=== PATIENT | male | born 1950 | race Caucasian/White ===

== ENCOUNTER → 2018-05-01 | Outpatient (CLI) | payer MEDICARE, OTHER ==
[~2018-05-01] MED LIST: DOCU100 PO; GLIP5 PO; HYDACE5 PO; METF500 PO; SENN187 PO; SIMV80 PO
[2018-05-01 16:32] LABS: BASOPHILS ABSOLUTE AUTO 0.04 K/mm3 (0.00-0.23); BASOPHILS PERCENT AUTO 0 % (0-2); EOSINOPHILS ABSOLUTE AUTO 0.29 K/mm3 (0.00-0.68); EOSINOPHILS PERCENT AUTO 3 % (0-6); Hematocrit 39.6 % (37.0-53.0); Hemoglobin 14.7 g/dL (13.5-17.5); IMMATURE GRAN ABSOLUTE AUTO 0.03 K/mm3 (0.00-0.10); IMMATURE GRAN PERCENT AUTO 0 % (0-1); LYMPHOCYTES PERCENT AUTO 19 % (21-46); MONOCYTES ABSOLUTE AUTO 0.55 K/mm3 (0.16-1.47); MONOCYTES PERCENT AUTO 6 % (4-13); Mean Corpuscular HGB 33.7 pg (26.0-34.0); Mean Corpuscular HGB Conc 37.1 g/dL (31.5-36.5); Mean Corpuscular Volume 91 fL (80-100); Mean Platelet Volume 9.7 fL (9.1-12.4); NEUTROPHILS PERCENT AUTO 72 % (41-73); Platelet Count 223 K/mm3 (150-400); RDW Coefficient Variation 12.5 % (11.7-14.2); Red Blood Cell Count 4.36 M/mm3 (4.30-5.90); White Blood Cell Count 9.51 K/mm3 (4.00-11.30)
[2018-05-01 16:54] LABS: Alanine Aminotransfer (ALT/SGP 26 U/L (12-78); Albumin, Blood 3.8 g/dL (3.4-5.0); Albumin/Globulin Ratio 1.2 (0.8-1.8); Alk Phos 71 U/L (40-126); Anion Gap 9 mmol/L (6-16); Aspartate Aminotrans (AST/SGOT 18 U/L (12-37); Bilirubin, Total 0.3 mg/dL (0.1-1.0); Blood Urea Nitrogen 18 mg/dL (8-24); Bun/Creatinine Ratio 19.4 (12.0-20.0); CO2, Blood 25 mmol/L (21-32); Calcium, Blood 8.7 mg/dL (8.5-10.1); Chloride, Blood 104 mmol/L (98-108); Creatinine, Blood 0.93 mg/dL (0.60-1.20); Globulin, Blood 3.3 g/dL (2.2-4.0); Glomerular Filtration Rate >60 (60-); Glucose, Blood 161 mg/dL (70-99); Potassium, Blood 4.3 mmol/L (3.5-5.5); Sodium, Blood 138 mmol/L (136-145); Thyroid Stimulating Hormone 3.296 uIU/mL (0.360-4.800); Total Protein, Blood 7.1 g/dL (6.4-8.2)
== END | disposition home or self-care (01) ==
LOC: LAB EV 16:29 → LAB SHORT 16:29
PROVIDERS: Physician Assistant
DX: R53.83 Other fatigue (principal)
CPT/HCPCS: 80053; 84443; 85025

== ENCOUNTER 2018-08-08 06:04 | Day surgery (SDC) | payer MEDICARE, OTHER ==
[~2018-08-08] VITALS: Ht 185.4 cm; Wt 98.5 kg
[~2018-08-08 06:04] MED LIST changes: +ATOR40TA PO; +Aspir 8181 MG PO; +B Complex #11 EACH PO; +CARV6.25 PO; +Fluoxetine HCl20 M1 PO; +GABA300 PO; +Galzin50 MG PO; +INSULANPEN SC; +Metformin HCl850 MG PO; +Naproxen250 MG PO; +OMEG1CAP30 PO; +OXYC5 PO; +PRAZ2 PO
--- NOTE | 2018-08-08 06:40 | NUR ---
08/08/18 0640 Mecca Mcconnell V PT RESTINGIN BED, SIDE RAILS IN PLACE, CALL LIGHT WITHIN REACH, VSS. PT DENIES PAIN AND DISCOMFORT AT THIS TIME. PT TEACHING COMPLETED. PT DENIES QUESTIONS AT THIS TIME.
--- NOTE | 2018-08-08 07:57 | NUR ---
08/08/18 0757 Regine Beltran PT TRANSFERRED TO THE RECLINER WITH STAND BY ASSIST FROM RN. PT DENIES PAIN AND NAUSEA. VSS. RN PROVIDED WARM BLANKETS AND A PILLOW TO REST THE OP ARM ON. PT IS RESTING WITH EYES CLOSED. PT'S NOTIFIED OF STATUS. PT IS TOLERATING PO FLUIDS AND SNACKS WELL.
== END 2018-08-08 08:22 | disposition home or self-care (01) ==
LOC: ORSCSDS 06:04
PROVIDERS: Orthopaedic Surgery
PROC: 01N50ZZ Release Median Nerve, Open Approach (ICD-10-PCS; principal; 2018-08-08 07:30)
DX: G56.01 Carpal tunnel syndrome, right upper limb (principal); E11.9 Type 2 diabetes mellitus without complications; E78.5 Hyperlipidemia, unspecified; F43.10 Post-traumatic stress disorder, unspecified; G47.33 Obstructive sleep apnea (adult) (pediatric); I10 Essential (primary) hypertension; I25.10 Atherosclerotic heart disease of native coronary artery without angina pectoris; Z79.82 Long term (current) use of aspirin; Z79.4 Long term (current) use of insulin; Z79.899 Other long term (current) drug therapy; Z87.891 Personal history of nicotine dependence
CPT/HCPCS: 82947; J0690; J2250; J3010; J7120

== ENCOUNTER 2019-06-26 14:52 | Inpatient (IN) | payer OTHER ==
[~2019-06-26] VITALS: Ht 185.4 cm; Wt 104.5 kg
[~2019-06-26 14:52] MED LIST changes: +BUPR150ER PO; +Crestor40 MG PO; +LISI5 PO; +THERA1 EACH PO
--- NOTE | 2019-06-27 06:40 | NUR ---
AMBULATORY INTO [facility] UTILIZING A CANE. PT REPORTS 2/10 RIGHT ANKLE PAIN. HISTORY AND ALLERGIES REVIEWED. NPO STATUS CONFIRMED. Patient reports completing Chlorhexadine shower X2 prior to admission to hospital.Surgical site prepped with 2% Chlorhexidine cloth wipe.
--- NOTE | 2019-06-27 07:25 | NUR ---
PT IS INSISTENT UPON RECEIVING HIS "BONE" POST OP. CONSENT FOR REMOVAL OF HUMAN TISSUE FROM HOSPITAL FORM SIGNED AND PLACED ON THE FRONT OF PT CHART.
--- NOTE | 2019-06-27 09:48 | NUR ---
06/27/19 0948 Kimberly Brand BONE FRAGMENT REMOVED TO BE GIVEN TO PT. PER DR. COREY. CONSENT FOR REMOVAL OF HUMAN TISSUE FROM HOSPITAL OBTAINED, COPY IN CHART.
--- NOTE | 2019-06-27 19:21 | NUR ---
SHIFT SUMMARY PT POD 0 R ANKLE. ULISES WRAP/SPLINT C/D/I W/GOOD CAP REFILL. PAIN MANAGED PER EMAR. PT WITH GOOD PO INTAKE AND VOIDING. WORKED WITH THERAPY. UP TO CHAIR. PLAN IS TO DC HOME TOMORROW.
--- NOTE | 2019-06-28 03:43 | NUR ---
SHIFT SUMMARY PT IS S/P R ANKLE REPLACEMENT. A/O X 4. HAS BEEN SLEEPING IN CHAIR MOST OF THE SHIFT. PT WAS MEDICATED FOR PAIN PRN. ULISES WRAP TO R LOWER LEG CDI. LEGS ELEVATED. PT VOIDING IN URINAL.
[2019-06-28 05:02] LABS: BASOPHILS ABSOLUTE AUTO 0.03 K/mm3 (0.00-0.23); BASOPHILS PERCENT AUTO 0 % (0-2); EOSINOPHILS PERCENT AUTO 1 % (0-6); Hematocrit 35.1 % (37.0-53.0); Hemoglobin 12.5 g/dL (13.5-17.5); IMMATURE GRAN ABSOLUTE AUTO 0.02 K/mm3 (0.00-0.10); IMMATURE GRAN PERCENT AUTO 0 % (0-1); LYMPHOCYTES PERCENT AUTO 20 % (21-46); MONOCYTES ABSOLUTE AUTO 0.73 K/mm3 (0.16-1.47); MONOCYTES PERCENT AUTO 8 % (4-13); Mean Corpuscular HGB 33.4 pg (26.0-34.0); Mean Corpuscular HGB Conc 35.6 g/dL (31.5-36.5); Mean Corpuscular Volume 94 fL (80-100); Mean Platelet Volume 9.6 fL (9.1-12.4); NEUTROPHILS ABSOLUTE AUTO 6.59 K/mm3 (1.96-9.15); NEUTROPHILS PERCENT AUTO 70 % (41-73); Platelet Count 158 K/mm3 (150-400); RDW Coefficient Variation 11.9 % (11.7-14.2); RDW Standard Deviation 41.1 fL (35.1-46.3); Red Blood Cell Count 3.74 M/mm3 (4.30-5.90); White Blood Cell Count 9.37 K/mm3 (4.00-11.30)
[2019-06-28 05:37] LABS: Alanine Aminotransfer (ALT/SGP 20 U/L (12-78); Albumin, Blood 3.5 g/dL (3.4-5.0); Albumin/Globulin Ratio 1.2 (0.8-1.8); Alk Phos 62 U/L (50-136); Anion Gap 9 mmol/L (6-16); Aspartate Aminotrans (AST/SGOT 12 U/L (12-37); Bilirubin, Total 0.4 mg/dL (0.1-1.0); Blood Urea Nitrogen 23 mg/dL (8-24); Bun/Creatinine Ratio 25.8 (12.0-20.0); CO2, Blood 25 mmol/L (21-32); Calcium, Blood 8.5 mg/dL (8.5-10.1); Chloride, Blood 104 mmol/L (98-108); Creatinine, Blood 0.89 mg/dL (0.60-1.20); Glomerular Filtration Rate >60 (60-); Glucose, Blood 136 mg/dL (70-99); Potassium, Blood 3.7 mmol/L (3.5-5.5); Sodium, Blood 138 mmol/L (136-145); Total Protein, Blood 6.5 g/dL (6.4-8.2)
[2019-06-28] MEDS ORDERED: Percocet 5-3251 EACH PO (11:35)
[2019-06-28] MEDS ORDERED: BUPR150ER PO (13:02)
[2019-06-28] MEDS ORDERED: TYLENOL325 MG PO (13:02)
--- NOTE | 2019-06-28 13:42 | NUR ---
PATIENT D/C'D HOME AT THIS TIME; STATES UNDERSTANDING OF MEDS, F/U APPT, WOUND CARE, ETC. PAIN CONTROLLED PER PATIENT, TOLERATING PO. NO ACUTE CHANGES OR C/O.
== END 2019-06-28 13:42 | disposition home or self-care (01) | DRG 469 ==
LOC: SURS 06-27 05:58 → PRE IP 06-27 07:30 → SURS 06-27 12:29
PROVIDERS: Podiatrist Foot & Ankle Surgery; ADMIT Family Medicine
PROC: 0QSG04Z Reposition Right Tibia with Internal Fixation Device, Open Approach (ICD-10-PCS; 2019-06-27)
PROC: 0L8S0ZZ Division of Right Ankle Tendon, Open Approach (ICD-10-PCS; 2019-06-27)
PROC: 0SRF0JA Replacement of Right Ankle Joint with Synthetic Substitute, Uncemented, Open Approach (ICD-10-PCS; principal; 2019-06-27 07:30)
DX: M19.071 Primary osteoarthritis, right ankle and foot (principal); S82.51XA Displaced fracture of medial malleolus of right tibia, initial encounter for closed fracture; E11.9 Type 2 diabetes mellitus without complications; I25.5 Ischemic cardiomyopathy; E78.5 Hyperlipidemia, unspecified; F43.10 Post-traumatic stress disorder, unspecified; G47.33 Obstructive sleep apnea (adult) (pediatric); I25.10 Atherosclerotic heart disease of native coronary artery without angina pectoris; I10 Essential (primary) hypertension; Z95.0 Presence of cardiac pacemaker; Z89.429 Acquired absence of other toe(s), unspecified side; Z79.4 Long term (current) use of insulin; Z79.899 Other long term (current) drug therapy; Z87.891 Personal history of nicotine dependence
CPT/HCPCS: 36415; 73610; 80053; 82947; 83036; 85025; 86850; 86900; 86901; 97116; 97162; 97166; 97530; C1713; C1769; C1776; J0171; J0690; J0735; J1100; J1815; J1885; J2250; J2370; J2405; J2704; J2795; J3010; J7120

== ENCOUNTER 2024-03-16 02:20 | Inpatient (IN) | payer OTHER ==
[~2024-03-16] VITALS: Ht 185.4 cm; Wt 86.4 kg
[~2024-03-16 02:20] MED LIST changes: -Metformin HCl850 MG PO; +Percocet 5-3251 EACH PO; +SYNJARDY 12.5-1 EAC3 PO; +TYLENOL325 MG PO
[2024-03-16] MEDS ORDERED: ASPI325 PO (02:40)
[2024-03-16] MEDS ORDERED: DULO60 PO (02:41)
[2024-03-16] MEDS ORDERED: TAMS.4ER PO (02:41)
[2024-03-16 02:53] LABS: BASOPHILS ABSOLUTE AUTO 0.04 K/mm3 (0.00-0.23); BASOPHILS PERCENT AUTO 1 % (0-2); EOSINOPHILS ABSOLUTE AUTO 0.21 K/mm3 (0.00-0.68); EOSINOPHILS PERCENT AUTO 3 % (0-6); Hematocrit 44.8 % (37.0-53.0); Hemoglobin 16.3 g/dL (13.5-17.5); IMMATURE GRAN ABSOLUTE AUTO 0.02 K/mm3 (0.00-0.10); IMMATURE GRAN PERCENT AUTO 0 % (0-1); LYMPHOCYTES ABSOLUTE AUTO 2.31 K/mm3 (0.84-5.20); LYMPHOCYTES PERCENT AUTO 28 % (21-46); MONOCYTES PERCENT AUTO 8 % (4-13); Mean Corpuscular HGB 33.1 pg (26.0-34.0); Mean Corpuscular HGB Conc 36.4 g/dL (31.5-36.5); Mean Corpuscular Volume 91 fL (80-100); Mean Platelet Volume 9.7 fL (9.1-12.4); NEUTROPHILS ABSOLUTE AUTO 5.08 K/mm3 (1.96-9.15); NEUTROPHILS PERCENT AUTO 61 % (41-73); Platelet Count 169 K/mm3 (150-400); RDW Coefficient Variation 12.2 % (11.7-14.2); RDW Standard Deviation 40.8 fL (35.1-46.3); Red Blood Cell Count 4.92 M/mm3 (4.30-5.90); White Blood Cell Count 8.36 K/mm3 (4.00-11.30)
[2024-03-16 03:05] LABS: International Normalized Ratio 1.02; Prothrombin Time Results 10.9 Sec (9.7-11.5)
[2024-03-16 03:10] LABS: Albumin, Blood 3.9 g/dL (3.4-5.0); Albumin/Globulin Ratio 1.2 (0.8-1.8); Bilirubin, Total 0.5 mg/dL (0.1-1.0); Bun/Creatinine Ratio 24.4 (12.0-20.0); Calcium, Blood 8.9 mg/dL (8.5-10.1); Creatinine, Blood 0.86 mg/dL (0.60-1.20); Globulin, Blood 3.3 g/dL (2.2-4.0); Total Protein, Blood 7.2 g/dL (6.4-8.2)
[2024-03-16] MEDS ORDERED: Aspirin 81 MG Chew PO ONE (06:25)
[2024-03-16 08:47] VITALS: BP 124/75
[2024-03-16] MEDS ORDERED: OZEMPIC0.25 MG/02 SC (09:14)
--- NOTE | 2024-03-16 12:24 | NUR ---
SPOKE WITH DR LANG AND ORDERS RECEIVED TO TRANSFER TO PCU. NURSING SHIP'S COOK AND CHARGE NURSE NOTIFIED. SPOKE WITH PATIENT AND HIS REGARDING REASON FOR TRANSFER AND BOTH INSTRUCTED ON NPO STATUS
[2024-03-16] MEDS ORDERED: OxyCODONE HCL 5 MG TAB PO PRN (12:25)
[2024-03-16] MEDS ORDERED: TADA10TA PO (12:52)
[2024-03-16] MEDS ORDERED: LACT PO (12:53)
--- NOTE | 2024-03-16 12:53 | NUR ---
PT TO TRANSFER TO ICU 3. REPORT CALLED TO RN.
--- NOTE | 2024-03-16 12:54 | NUR ---
1000 PT PLEASNT COOP A/O X3. PT DENIES CHEST PAIN, PRESSURE, TIGHTNESS, N/T IN ARM. STATES ALL RESOLVED LAST NIGHT. H/R REG, NO MURMUR NOTED. PACER LUCW. PT STATES IS SOME KIND OF DOUBLE ONE. DOES NOT KNOW IF SHOCKS HIM OR NOT. STATES HE FELT IF PACER WAS HURTING AND WIRES HURTING HIM LAST NIGHT, THATS WHY HE CAME IN. LUNGS CLEAR, RESP EASY, UNLABORED. ON R/A. BT X4, VOIDS INDEPENDANTLY TO BATHROOM. TELE ORDERED AND PLACED.
[2024-03-16] MEDS ORDERED: NALOXONE H0.4 MG/1 M IM (12:55)
--- NOTE | 2024-03-16 12:58 | NUR ---
1207. ALCON SANTIAGO. STATES TROP [id number]. CALLED. PT TO TRANSFER TO PCU/ICU. PT DENIES CHEST PAIN, PRESSURE.
[2024-03-16 13:02] LABS: Anti-Xa UFH, PHA Monitoring <0.10 IU/mL
[2024-03-16] MEDS ORDERED: Heparin Sodium,Porcine/0.5 NS 500 ML IV SCH (13:10)
[2024-03-16] MEDS ORDERED: Heparin Sodium 5000 Units/ML 1ML MDV IV ONE (13:10)
[2024-03-16 13:15] VITALS: BP 119/82
--- NOTE | 2024-03-16 13:20 | NUR ---
PT TRANSFERREED TO ICU
[2024-03-16] MEDS ORDERED: Ondansetron 4 MG TAB PO PRN (13:35)
[2024-03-16] MEDS ORDERED: Temazepam 15 MG Cap PO PRN (13:35)
[2024-03-16] MEDS ORDERED: Acetaminophen 325 MG TABLET PO PRN (13:35)
[2024-03-16] MEDS ORDERED: Ondansetron HCl 2 MG / ML 2ML Vial IV PRN (13:35)
--- NOTE | 2024-03-16 14:31 | NUR ---
Assumed care. Pt arrived to ICU at approximately 1310. Pt alert and oriented, able to easily ambulate without assistance from med floor bed to ICU bed. Denies chest pain/SOB/pressure. VS stable at time of arrival
[2024-03-16] MEDS ORDERED: NAPROXEN250 M1 PO (14:47)
[2024-03-16] MEDS ORDERED: ZINC220 PO (14:48)
[2024-03-16] MEDS ORDERED: ASCO500 PO (14:48)
[2024-03-16] MEDS ORDERED: THERA-D2000 UNIT PO (14:49)
[2024-03-16] MEDS ORDERED: LIDO5TO TOP (14:51)
[2024-03-16] MEDS ORDERED: Voltaren100 GM TOP (14:51)
[2024-03-16] MEDS ORDERED: Heparin Sodium 1000 Units/ML 10ML MDV ONE ×2 (15:01→15:07)
[2024-03-16] MEDS ORDERED: Nitroglycerin 2 MG/20 ML BTL ONE (15:02)
[2024-03-16] MEDS ORDERED: NS 1,000 ML IV ONE ×2 (15:02→15:08)
[2024-03-16] MEDS ORDERED: NiCARdipine HCL 1,000 MCG/5 ML SYR ONE (15:02)
[2024-03-16] MEDS ORDERED: NS 250 ML IV ONE (15:02)
[2024-03-16] MEDS ORDERED: FentaNYL Citrate 50 MCG/ML 2 ML Injection ONE (15:16)
[2024-03-16] MEDS ORDERED: Midazolam HCl 1MG / ML 2ML Vial ONE (15:16)
[2024-03-16] MEDS ORDERED: Ticagrelor 90 MG TABLET ONE (15:54)
[2024-03-16 16:50] VITALS: BP 146/77
[2024-03-16] MEDS ORDERED: Nitroglycerin 0.4 MG SUBL SL PRN (16:55)
[2024-03-16] MEDS ORDERED: NS 1,000 ML IV SCH (16:55)
[2024-03-16] MEDS ORDERED: Prazosin HCl 1 MG Cap PO SCH (18:00)
--- NOTE | 2024-03-16 18:42 | NUR ---
Shift summary. Pt stable this shift. Taken to packing house laborer this afternoon, see packing house laborer charting. One stent placed, pt tolerated procedure well. TR band in place, R radial site intact, no bleeding, 2 ml air removed at 1834. Pt vital signs stable post procedure, see chart for further details.
[2024-03-16 19:39] VITALS: BP 132/76
[2024-03-16] MEDS ORDERED: Famotidine 20 MG Tab PO SCH (21:00)
[2024-03-16] MEDS ORDERED: Carvedilol 6.25 MG Tab PO SCH (21:00)
[2024-03-16] MEDS ORDERED: Tamsulosin HCl 0.4 MG Cap PO SCH (21:00)
[2024-03-16] MEDS ORDERED: Rosuvastatin Calcium 10 MG Tab PO SCH (21:00)
[2024-03-16] MEDS ORDERED: Ticagrelor 90 MG TABLET PO SCH (22:00)
[2024-03-16 23:07] VITALS: BP 116/68
[2024-03-17 03:16] LABS: BASOPHILS ABSOLUTE AUTO 0.06 K/mm3 (0.00-0.23); BASOPHILS PERCENT AUTO 1 % (0-2); EOSINOPHILS ABSOLUTE AUTO 0.18 K/mm3 (0.00-0.68); EOSINOPHILS PERCENT AUTO 2 % (0-6); Hematocrit 44.4 % (37.0-53.0); Hemoglobin 16.2 g/dL (13.5-17.5); IMMATURE GRAN ABSOLUTE AUTO 0.01 K/mm3 (0.00-0.10); IMMATURE GRAN PERCENT AUTO 0 % (0-1); LYMPHOCYTES ABSOLUTE AUTO 1.87 K/mm3 (0.84-5.20); LYMPHOCYTES PERCENT AUTO 20 % (21-46); MONOCYTES ABSOLUTE AUTO 0.68 K/mm3 (0.16-1.47); MONOCYTES PERCENT AUTO 7 % (4-13); Mean Corpuscular HGB 33.3 pg (26.0-34.0); Mean Corpuscular HGB Conc 36.5 g/dL (31.5-36.5); Mean Corpuscular Volume 91 fL (80-100); NEUTROPHILS ABSOLUTE AUTO 6.46 K/mm3 (1.96-9.15); NEUTROPHILS PERCENT AUTO 70 % (41-73); Platelet Count 159 K/mm3 (150-400); RDW Coefficient Variation 12.1 % (11.7-14.2); RDW Standard Deviation 40.4 fL (35.1-46.3); Red Blood Cell Count 4.87 M/mm3 (4.30-5.90); White Blood Cell Count 9.26 K/mm3 (4.00-11.30)
[2024-03-17 03:36] LABS: Alanine Aminotransfer (ALT/SGP 20 U/L (12-78); Albumin, Blood 3.5 g/dL (3.4-5.0); Albumin/Globulin Ratio 1.1 (0.8-1.8); Alk Phos 81 U/L (50-136); Anion Gap 13 mmol/L (3-11); Aspartate Aminotrans (AST/SGOT 47 U/L (12-37); Bilirubin, Total 0.4 mg/dL (0.1-1.0); Blood Urea Nitrogen 21 mg/dL (8-24); Bun/Creatinine Ratio 28.8 (12.0-20.0); CO2, Blood 21 mmol/L (21-32); Calcium, Blood 8.3 mg/dL (8.5-10.1); Chloride, Blood 109 mmol/L (98-108); Cholesterol 140 mg/dL (50-200); Creatinine, Blood 0.73 mg/dL (0.60-1.20); Globulin, Blood 3.1 g/dL (2.2-4.0); Glomerular Filtration Rate 97 (60-); Glucose, Blood 203 mg/dL (70-99); HDL Cholesterol 28 mg/dL (>39); LDL/HDL RATIO 1.3; Low Density Lipoprotein Chol 36 mg/dL (0-110); Potassium, Blood 3.7 mmol/L (3.5-5.5); Sodium, Blood 139 mmol/L (136-145); Total Protein, Blood 6.6 g/dL (6.4-8.2); Triglycerides 378 mg/dL (30-160); Very Low Density Lipoprot Chol 75 mg/dL (6-32)
--- NOTE | 2024-03-17 05:51 | NUR ---
SHIFT SUMMERY PT IS ALERT AND ORIENTED X4. NO COMPLAINTS OF CHEST PAIN/DISCOMFORT OVERNIGHT. BP WNL, AFEBRILE. PACED ON THE CARDIC MONITOR. TR BAND REMOVED, SITE WNL.
[2024-03-17 05:54] VITALS: BP 100/50
[2024-03-17 08:03] VITALS: BP 114/65
[2024-03-17] MEDS ORDERED: Aspirin 325 MG Tab PO SCH (09:00)
[2024-03-17] MEDS ORDERED: DULoxetine HCL 60 MG Capsule DR PO SCH (09:00)
[2024-03-17] MEDS ORDERED: Lisinopril 5 MG Tab PO SCH (09:00)
[2024-03-17] MEDS ORDERED: Aspirin 81 MG TabEC PO SCH (09:00)
[2024-03-17] MEDS ORDERED: Apixaban 5 MG Tab PO SCH (11:00)
[2024-03-17] MEDS ORDERED: ELIQUIS5 M2 PO (13:32)
[2024-03-17] MEDS ORDERED: NITR.4SL SL (13:33)
[2024-03-17] MEDS ORDERED: TICA90TA PO (13:34)
--- NOTE | 2024-03-17 14:10 | NUR ---
PT D/C.... PT DISCHARGED HOME WITH IS . DISCHARGE EDUCATION PROVIDED IN WRITTEN AND VERBAL FORMAT. PT'S NEW MEDICATIONS WERE FAXED TO [facility] PT'S [facility]Y OF CHOICE. PT'S IVs WERE REMOVED BY M[facility]. NEW MEDICATION INFORMATION WAS PROVIDED TO THE PT, PT WAS INFORMED OF THE IMPORTANCE OF STOPPING CIALIS AT THIS TIME WITH THE NEW PRESCRIPTION OF NITRO. PT VERBALIZED HIS UNDERSTANDING. PT'S RIGHT WRIST SITE WAS STABLE DISCHARGE INSTRUCTIONS PROVIDED IN WRITTEN AND VERAL FORMAT FOR THE CARE OF THE RADIAL SITE. PT DENIED THE W/C ESCORT TO THE FRONT DOORS. ALL PT'S BELONGINGS WERE PACKED BY THE AND TAKEN BY HER AT DISCHARGE.
== END 2024-03-17 14:07 | disposition home or self-care (01) | DRG 174 ==
LOC: ER 02:20 → MEDS 02:21 → ICUE 13:09
PROVIDERS: Emergency Medicine; ADMIT Internal Medicine
PROC: 027034Z Dilation of Coronary Artery, One Artery with Drug-eluting Intraluminal Device, Percutaneous Approach (ICD-10-PCS; principal; 2024-03-16)
PROC: B2111ZZ Fluoroscopy of Multiple Coronary Arteries using Low Osmolar Contrast (ICD-10-PCS; 2024-03-16)
PROC: 4A023N7 Measurement of Cardiac Sampling and Pressure, Left Heart, Percutaneous Approach (ICD-10-PCS; 2024-03-16)
DX: I21.4 Non-ST elevation (NSTEMI) myocardial infarction (principal); I25.10 Atherosclerotic heart disease of native coronary artery without angina pectoris; I25.5 Ischemic cardiomyopathy; E11.9 Type 2 diabetes mellitus without complications; I10 Essential (primary) hypertension; F43.10 Post-traumatic stress disorder, unspecified; M19.90 Unspecified osteoarthritis, unspecified site; Z95.810 Presence of automatic (implantable) cardiac defibrillator; I44.7 Left bundle-branch block, unspecified; Z87.891 Personal history of nicotine dependence; Z79.82 Long term (current) use of aspirin; Z79.811 Long term (current) use of aromatase inhibitors; Z79.899 Other long term (current) drug therapy; Z79.891 Long term (current) use of opiate analgesic; E78.5 Hyperlipidemia, unspecified; Z98.890 Other specified postprocedural states
CPT/HCPCS: 36415; 71045; 76937; 80053; 80061; 84484; 85025; 85347; 85520; 85610; 85730; 92920; 93005; 93010; 93454; 96374; 99152; 99153; 99285-25; A9270; C1725; C1769; C1874; C1887; C1894; C8929; G0378; J1644; J2250; J3010; J7030; J7050; Q9957; Q9967